=== PATIENT | male | born 1950 | race Caucasian/White ===

== ENCOUNTER 2021-10-31 18:26 | Emergency (ER) | payer MEDICARE, OTHER, SELFPAY ==
[2021-10-31 18:34] VITALS: BP 183/98
[2021-10-31 18:35] VITALS: PULSE 99; RESP 18; O2SAT 99
--- NOTE | 2021-10-31 18:35 | ED.MALEGU ---
HPI - Male Genitourinary <CARRINGTON Champagne - Last Filed: 10/31/21 19:46> General Chief complaint: Urogenital-Male Stated complaint: Urinary issues Time Seen by Provider: 10/31/21 18:28 History of Present Illness HPI Narrative: 71-year-old male with history enlarged prostate and her procedure 25 years ago using GreenLight technique presents to the emergency department after his 2nd TURP procedure for residual scarring which occurred 830 this morning, patient states that he is concerned for low urinary output since 17:00 and some bleeding around the catheter. Patient's catheter has blood tinged urine, he was keeping track hourly and states that he was having an average of 12-20 ounces/hour of output in between the hours of 17:00 and 18:00 he had less than 3 oz. Patient was concerned about obstruction, he called his urologist on-call who instructed him to push his catheter up further into his bladder, he states that he did this, and then came to the emergency department for evaluation. Patient denies any bladder pressure, pelvic pain, nausea, vomiting, or any other symptoms. Patient denies being on Flomax because he states the reason for his TURP procedure today was due to scar tissue. Review of Systems <CARRINGTON Champagne - Last Filed: 10/31/21 19:46> Review of Systems Narrative: General: denies fever, chills, malaise, sweats, fatigue Head/Neck: denies headache, neck pain, dizziness Eyes: denies visual changes, eye pain Cardio: denies chest pain, palpitations, edema Respiratory: denies dyspnea, cough, orthopnea GI: denies abdominal pain, nausea, vomiting, or diarrhea : denies dysuria, frequency or incontinence, has urinary catheter in place and is concerned about obstruction, hematuria is present MSK: denies joint pain, muscle weakness Skin: denies rash, itching, skin lesions or other Neuro: denies numbness, tingling Patient History <CARRINGTON Champagne - Last Filed: 10/31/21 19:46> Social History Smoking Status: Former smoker Exam <CARRINGTON Champagne - Last Filed: 10/31/21 19:46> Narrative Exam Narrative: Independently reviewed vitals signs and nursing notes. General: cooperative, comfortable, in no acute distress, well developed and well groomed Head: atraumatic, symmetrical facial expressions Neck: supple, atraumatic, without lymphadenopathy. Eyes: pupils equal round and reactive, EOMI, conjunctiva normal Nose: nares patent, no rhinorrhea Mouth/Throat: uvula midline, moist mucus membranes Cardiovascular: regular rate and rhythm, no peripheral edema, warm extremities Respiratory: normal effort, able to speak in complete sentences, no audible wheezing, stridor, or rales. No retractions or tachypnea. GI: abdomen soft, nontender to palpation, nondistended, no masses, no exquisite tenderness with exam, without guarding or rebound. : 3 way urinary catheter is present is irrigated by nursing staff, now has clear thong drainage, a couple small clots were removed. MSK: moves all extremities, ambulatory w/steady gait, neurovascularly intact, no weakness Skin: brisk capillary refill, no rash, no erythema Neuro: normal speech and cognition, A&O x3, normal tone Psych: mental status is grossly normal, congruent mood, normal affect, pleasant and cooperative Initial Vital Signs Initial Vital Signs: Vital Signs Blood Pressure 183/98 H 10/31/21 18:34 <Bernard Pollard DO - Last Filed: 11/04/21 07:11> Initial Vital Signs Initial Vital Signs: Vital Signs Blood Pressure 183/98 H 10/31/21 18:34 Course <BEVERLY ChampagneP - Last Filed: 10/31/21 19:46> Vital Signs Vital signs: Vital Signs - 8 hr 10/31/21 18:34 10/31/21 18:35 10/31/21 18:45 Temperature 98.0 F Pulse Rate 99 H 78 Respiratory Rate 18 18 Blood Pressure 183/98 H 183/98 H Pulse Oximetry 99 99 10/31/21 18:51 10/31/21 19:00 10/31/21 19:17 Temperature Pulse Rate 103 H 89 84 Respiratory Rate Blood Pressure 145/99 H 152/95 H Pulse Oximetry 99 99 97 <Bernard Pollard DO - Last Filed: 11/04/21 07:11> Vital Signs Vital signs: Vital Signs - 8 hr 10/31/21 18:34 10/31/21 18:35 10/31/21 18:45 Temperature 98.0 F Pulse Rate 99 H 78 Respiratory Rate 18 18 Blood Pressure 183/98 H 183/98 H Pulse Oximetry 99 99 10/31/21 18:51 10/31/21 19:00 10/31/21 19:17 Temperature Pulse Rate 103 H 89 84 Respiratory Rate Blood Pressure 145/99 H 152/95 H Pulse Oximetry 99 99 97 MDM - Male Genitourinary <CARRINGTON Champagne - Last Filed: 10/31/21 19:46> [facility] Narrative Medical decision making narrative: 71-year-old male presents to the emergency department following his 2nd her procedure which occurred 830 this morning with concerns for urinary catheter obstruction since 17:00 today. Patient was having approximately 12-20 oz of urine output per hour until 05:00 o'clock when he noticed it dropped off. He called the on-call urologist who instructed him to push the catheter further into his bladder, he states he did this, and has had some urinary output since but not the same amount that he had before. Nursing irrigated his 3 way urinary catheter and removed a couple small clots, he is now draining urine, hematuria is present but is thong in color. Patient was shown how to switch between his leg bag and overnight urinary drainage bags and feels confidence in troubleshooting this at home. Recommend close follow-up with his urologist, was given strict return precautions for any more possible obstruction situations. Patient is appropriate and amenable to discharge home. Vital signs are stable on repeat examination is unremarkable. Patient has been informed of results. Patient has been given strict return to ER precautions for any new or worsening symptoms. Patient understands to follow up closely with outpatient providers as instructed. Patient understands plan and agrees to discharge home. All questions and concerns answered at this time. Discharge Plan Departure Patient Disposition: Home Clinical Impression: Obstruction of urinary catheter Qualifiers: Encounter type: initial encounter Qualified Code(s): T83.098A - Other mechanical complication of other urinary catheter, initial encounter Instructions: How to Care for Your Ovalles Catheter -- Male, Transurethral Resection of the Prostate, DI for Transurethral Resection of the Prostate Activity Restrictions/Additional Instructions: *You have been diagnosed with an obstructed urinary catheter. Please continue to monitor urine output, stay hydrated, if you are putting out less than 50 mL in 1 hour, please assess your catheter, try troubleshooting for clogs, and manipulating the catheter for drainage. Please return to the emergency department if you are not putting out any urine. Wish you the best of luck, happy healing. *What to do: *Please continue to take your regular medications as directed. [ ] New medication prescriptions sent to your pharmacy: [ ] [ ] New medication written as a paper prescription [x ] No new medications given *Please follow up with your primary care provider in 2-3 days, call for an appointment. Let them know you were seen in the Emergency Department and that we asked that you be seen for follow-up. We will electronically transmit a record of today's note if your PCP is in our system *If you do not have a primary care provider please contact [phone] to establish care with one of the [facility] primary care providers. *Return to Emergency Department if you should have any new, worsening or concerning symptoms, such as [fever greater than 101F, chills, worsening pain, persistent vomiting or other bothersome symptoms] <Bernard Pollard, DO - Last Filed: 11/04/21 07:11> Cosign ED Attending Cosignature Attestation: Dr Pollard Co-Sign Statement: I was available for consultation during this patient's emergency department visit. This chart is signed by myself for administrative purposes only. I did not have direct contact with this patient during this visit. They were seen independently by the APC.
[2021-10-31 18:45] VITALS: BP 183/98; PULSE 78; RESP 18; TEMP 36.7; O2SAT 99; BMI 25.4
[2021-10-31 18:51] VITALS: BP 145/99; PULSE 103; O2SAT 99
[2021-10-31 19:00] VITALS: PULSE 89; O2SAT 99
[2021-10-31 19:17] VITALS: BP 152/95; PULSE 84; O2SAT 97
== END 2021-10-31 19:26 | disposition home or self-care (01) ==
LOC: ED 18:53
PROVIDERS: Emergency Provider Nurse Practitioner Critical Care Medicine; PCP Family Medicine
DX: T83.098A Other mechanical complication of other urinary catheter, initial encounter (principal); Z87.891 Personal history of nicotine dependence; Y73.2 Prosthetic and other implants, materials and accessory gastroenterology and urology devices associated with adverse incidents; Z46.6 Encounter for fitting and adjustment of urinary device
CPT/HCPCS: 51700; 99281; 99284

== ENCOUNTER 2021-11-10 22:47 | Emergency (ER) | payer MEDICARE, OTHER, SELFPAY ==
[2021-11-10] MEDS: LIDOCAINE 2% (GLYDO) 6 ML GEL TOP (22:58)
[2021-11-10 23:07] VITALS: BP 143/95; PULSE 90; RESP 22; TEMP 36.6; O2SAT 96; BMI 25.8
--- NOTE | 2021-11-10 23:10 | PC.NURSE ---
19f 3way cath placed with 500ml output of bloody urine
--- NOTE | 2021-11-10 23:30 | ED_ITS ---
HPI - Male Genitourinary General Chief complaint: Urogenital-Male Stated complaint: peeing blood clots Time Seen by Provider: 11/10/21 23:23 Source: patient Mode of arrival: Ambulatory History of Present Illness HPI Narrative: Patient is a 71-year-old male is who is postop TURP on 10/31/2021 presenting today with hematuria. He is not on any anti-platelet or anticoagulation medication. No other health problems. States that he was doing well until this evening when he started having blood and difficulty urinating. Ovalles catheter was immediately placed in the ED gross blood had returned. He denies any fever chills nausea vomiting. Severe suprapubic pain Related Data Previous Rx's Medication Instructions Recorded cephalexin 500 mg capsule 500 mg PO BID 7 Days #14 cap 11/11/21 Allergies Allergy/AdvReac Type Severity Reaction Status Date / Time No Known Drug Allergies Allergy Verified 11/10/21 22:59 Review of Systems Review of Systems Narrative: GENERAL: Denies chills, fatigue, malaise, fever, sweats, travel HEENT: Denies sinus pain, ear pain, sore throat, difficulty swallowing, neck pain RESPIRATORY: Denies dyspnea, cough, wheezing, hemoptysis, sputum. CARDIOVASCULAR: Denies chest pain, palpitations, orthopnea, edema GASTROINTESTINAL: Denies nausea, vomiting, abdominal pain, diarrhea, constipation, melena. : See HPI MUSCULOSKELETAL: Denies weakness, joint pain, or bony pain SKIN: No rash, no erythema, no pruritus NEUROLOGIC: Denies weakness, dizziness, headache, numbness, change in speech, confusion PSYCHIATRIC: No concerning psychosocial issues. 12 point review of systems is negative except for those stated above and HPI Patient History Social History Smoking Status: Former smoker Smoking Status: Former smoker alcohol intake frequency: 0-2 drinks per day Substance Use Type: does not use Exam Initial Vital Signs Initial Vital Signs: Vital Signs Temperature 98 F 11/10/21 23:07 Pulse Rate 90 11/10/21 23:07 Respiratory Rate 22 11/10/21 23:07 Blood Pressure 143/95 H 11/10/21 23:07 Pulse Oximetry 96 11/10/21 23:07 GENERAL: 71-year-old male appears uncomfortable and in no acute distress. HEENT: Head atraumatic,EOMI, pupils reactive, face symmetric, moist mucous membranes CARDIOVASCULAR: Regular rate and rhythm without murmurs, rubs or gallops. RESPIRATORY: Breath sounds equal bilaterally, no wheezes rales or rhonchi. ABDOMEN: Soft, suprapubic pain tender : Ovalles catheter placed gross hematuria difficulty irrigate multiple blood clots EXTREMITIES: Normal range of motion, no clubbing or edema. Neurovascularly intact NEUROLOGICAL: Alert and oriented x4.Normal gait and speech. SKIN: Warm, dry, no laceration, no petechiae, no rashes or lesions. Course Orders Ordered: ED Orders 11/11/21 01:50 UA Complete [Urinalysis and Microscopic] Stat Urine Culture Stat Discontinued Medications Cefazolin Sodium (Cephalexin 250 Mg Prepack) 1 bottle MISC SEEINSTR ONE Stop: 11/11/21 02:09 Last Admin: 11/11/21 02:19 Dose: 1 bottle Documented by: Hydromorphone HCl (Hydromorphone 1 Mg Inj) 1 mg IM NOW ONE Stop: 11/10/21 23:39 Last Admin: 11/10/21 23:41 Dose: 1 mg Documented by: DEMETRIUS Lidocaine HCl (Lidocaine 2% (Glydo) 6 Ml Gel) 6 ml TOP NOW ONE Stop: 11/10/21 22:56 Last Admin: 11/10/21 22:58 Dose: 6 ml Documented by: YANETH Vital Signs Vital signs: Vital Signs - 8 hr 11/10/21 23:07 11/11/21 02:34 Temperature 98 F Pulse Rate 90 88 Respiratory Rate 22 20 Blood Pressure 143/95 H 147/84 H Pulse Oximetry 96 99 MDM - Male Genitourinary Lab Data Labs: Lab Results 11/11/21 Range/Units 01:50 Urine Color Red Urine Appearance Clear Urine pH 7.5 (4.5-8.0) Ur Specific [place] 1.010 (1.000-1.035) Urine Protein 2+ H (Negative) Urine Glucose (UA) Negative (Negative) g/dL Urine Ketones Negative (NEGATIVE) Urine Occult Blood 3+ H (Negative) Urine Nitrate Positive H (Negative) Urine Bilirubin Negative (NEGATIVE) Urine Urobilinogen 0.2 (0.2) E.U./dL Ur Leukocyte Esterase Trace H (NEGATIVE) Urine RBC >100/hpf H (0-5/HPF) Urine WBC 5-10/hpf H (0-5/HPF) Ur Squamous Epith Cells 0-1 /hpf (0-5/HPF) Urine Bacteria Few (2-10) H (None) Ur Culture Indicated? Specimen cultured MDM Narrative Medical decision making narrative: Ovalles catheter required manual irrigation along with multiple L of continue saline irrigation. Multiple blood clots removed. It did stay light pink and clear for about 1 hour. Urinalysis does show positive nitrates will put him on antibiotics. Overall pain is significantly improved. Discharge Plan Departure Patient Disposition: Home Clinical Impression: Hematuria Instructions: DI for Urinary Tract Infection (UTI), DI for Hematuria Activity Restrictions/Additional Instructions: *You have been diagnosed with hematuria, UTI *What to do: Keep Ovalles catheter in place until seen and evaluated by urology. Monitor for worsening bleeding. You were also found have minor bladder infection. Start him on antibiotic *Continue to take medications as directed Keflex 500 mg twice a day for 7 days *Follow up with your primary care provider in 2-3 days or call [phone] *Return to ER if you should have blood, unable to see through tubing, Ovalles catheter not working, increase abdominal pain, fever any new, worsening or concerning symptoms Prescriptions: New cephalexin 500 mg capsule 500 mg PO BID 7 Days Qty: 14 0RF Referrals: Tao Lloyd MD [Non-Staff] - Fernanda Schmid MD [Primary Care Provider] -
[2021-11-10] MEDS: HYDROMORPHONE 1 MG INJ IM (23:41)
[2021-11-11 02:05] LABS: Appearance Urine UA CLEAR; Bilirubin Urine UA NEGATIVE (NEGATIVE); Color Urine UA RED; Glucose Urine UA NEGATIVE (Negative); Ketones Urine UA NEGATIVE (NEGATIVE); Leukocyte Esterase Urine UA TRACE (NEGATIVE); Nitrite Urine UA POSITIVE (Negative); Occult Blood Urine UA 3+ (Negative); Protein Urine UA 2+ (Negative); Urobilinogen Urine UA 0.2 E.U./dL (0.2); pH Urine UA 7.5 (4.5-8.0)
[2021-11-11 02:06] LABS: RBC Urine >100/HPF (0-5/HPF)
[2021-11-11 02:07] LABS: Bacteria Urine Few (2-10); Squamous Epithelial Cell Urine 0-1 /HPF (0-5/HPF); WBC Urine 5-10/HPF (0-5/HPF)
[2021-11-11 02:08] LABS: Culture Indicated Urine Specimen Cultured
[2021-11-11] MEDS: cephALEXin 250 MG PREPACK 1 BOTTLE MISC (02:19)
[2021-11-11 02:34] VITALS: BP 147/84; PULSE 88; RESP 20; O2SAT 99
--- NOTE | 2021-11-13 09:06 | PC.NURSE ---
pt called to verify micro of urine.
== END 2021-11-11 02:35 | disposition home or self-care (01) ==
PROVIDERS: Emergency Provider Emergency Medicine; PCP Family Medicine
DX: R31.9 Hematuria, unspecified (principal); N39.0 Urinary tract infection, site not specified
CPT/HCPCS: 51702; 81001; 87086; 96372; 99283; 99284; J1170